=== PATIENT | male | born 1965 | race Caucasian/White ===

== ENCOUNTER 2021-08-16 06:55 | Emergency (ER) | payer OTHER ==
[~2021-08-16] VITALS: Ht 177.8 cm; Wt 86.2 kg
[2021-08-16] MEDS ORDERED: AMOX-CLAV 875-1 EACH PO (08:24)
== END 2021-08-16 08:41 | disposition home or self-care (01) ==
LOC: ER 06:55
DX: Z48.02 Encounter for removal of sutures (principal)